=== PATIENT | male | born 1935 | race Caucasian/White ===

== ENCOUNTER 2018-04-16 15:20 | Day surgery (SDC) | payer MEDICARE, OTHER ==
[2018-04-16] MEDS ORDERED: FENTANYL CITRATE INJ/PF 100 MCG/2 ML AMPUL ONE (16:15)
[2018-04-16] MEDS ORDERED: DIPHENHYDRAMINE HCL 50 MG/ML VIAL ONE (16:15)
[2018-04-16] MEDS ORDERED: ONDANSETRON HCL INJ/PF 4 MG/2 ML SDV ONE (16:15)
[2018-04-16] MEDS ORDERED: NALOXONE HCL INJ/PF 0.4 MG/1 ML SDV ONE (16:16)
[2018-04-16] MEDS ORDERED: FLUMAZENIL INJ 0.5 MG/5 ML VIAL ONE (16:16)
[2018-04-16] MEDS ORDERED: GLUCAGON,HUMAN RECOMB 1 MG INJ ONE (16:16)
[2018-04-16] MEDS ORDERED: EPINEPHRINE INJ 1 MG/10 ML DISP.SYRIN ONE (16:16)
[2018-04-16] MEDS: MIDAZOLAM 2 MG/2 ML INJ ONE ×2 (17:01→17:05)
--- NOTE | 2018-04-16 17:46 | Operative Report ---
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 Ascending colon angiodysplasias 2. Ascending colon polyp 3. Internal hemorrhoids Surgery: Colonoscopy polypectomy and ablation Medications: Versed 3mg, Fentanyl 50mcg IV push Tissue removed: Colon polyp Procedure: After informed consent obtained from patient, conscious sedation was achieved. A digital rectal examination was performed and this was unremarkable. The colonoscope was inserted into the rectum and advanced to the cecum. The appendiceal orifice and the terminal ileum were both identified. The mucosa was examined into details as the colonoscope was slowly pulled out of the patient. The endoscope was retroflexed in the rectum. Patient tolerated the procedure well. Findings Cecum: Normal Ascending colon: Two 4 mm AVMs were noted in the ascending colon. 1 of the AVMs was sitting on the lipomatous lesion. There are 4 mm polyp was removed with a cold snare Transverse colon: Normal Descending colon: Normal Sigmoid colon: Normal Rectum: Normal except for internal hemorrhoids Plan: Await pathology. Follow-up [facility] OPERATION: .
[2018-04-16 18:35] VITALS: BP 150/67
== END 2018-04-16 18:40 | disposition home or self-care (01) ==
LOC: END 15:20
PROVIDERS: ATTEND Internal Medicine Gastroenterology
DX: D12.2 Benign neoplasm of ascending colon (principal); K64.8 Other hemorrhoids; Q27.33 Arteriovenous malformation of digestive system vessel; D50.0 Iron deficiency anemia secondary to blood loss (chronic); Z86.010 Personal history of colon polyps; K55.20 Angiodysplasia of colon without hemorrhage; I10 Essential (primary) hypertension; K21.9 Gastro-esophageal reflux disease without esophagitis; J44.9 Chronic obstructive pulmonary disease, unspecified; I48.91 Unspecified atrial fibrillation; M19.90 Unspecified osteoarthritis, unspecified site; Z86.73 Personal history of transient ischemic attack (TIA), and cerebral infarction without residual deficits; Z79.899 Other long term (current) drug therapy; Z85.46 Personal history of malignant neoplasm of prostate; Z85.828 Personal history of other malignant neoplasm of skin; Z87.891 Personal history of nicotine dependence
CPT/HCPCS: 45385; 45388; 88305 ×2; J2250; J3010; J0171; J1200; J1610; J2310; J2405; J3490